=== PATIENT | female | born 1965 ===

== ENCOUNTER 2018-11-24 12:18 | Observation (INO) | payer MEDICAID, OTHER ==
[2018-11-24] MEDS ORDERED: Piperacillin/Tazobact 3.375 GM in Sodium Chloride 0.9% 100 ML IVPB STA (13:35)
[2018-11-24] MEDS ORDERED: Sodium Chloride 0.9% 1,000 ML IV ONE (13:35)
[2018-11-24] MEDS ORDERED: Tdap Vaccine 0.5 ml Vial (10-64 yrs) IM ONE ×2 (13:36→14:19)
[2018-11-24] MEDS ORDERED: Piperacillin/Tazobact 3.375 gm Inj IVPB ONE (14:18)
[2018-11-24] MEDS ORDERED: Vancomycin 1 g Inj ONE (14:18)
[2018-11-24 14:33] LABS: BASO % 0.6 % (0.0-2.0); EOS # 0.1 K/uL (0.0-0.7); EOS % 1.5 % (0.0-4.0); HEMOGLOBIN 14.6 g/dL (12.0-16.0); LYMPH # 1.2 K/uL (1.0-4.3); LYMPH % 15.7 % (20.0-40.0); MEAN CELL VOLUME 87.1 fl (81.0-99.0); MEAN CORPUSCULAR HEMOGLOBIN 29.9 pg (27.0-31.0); MEAN CORPUSCULAR HGB CONC 34.4 g/dL (33.0-37.0); MEAN PLATELET VOLUME 8.9 fl (7.2-11.7); MONO # 0.6 K/uL (0.0-0.8); MONO % 7.8 % (0.0-10.0); NEUT # 5.8 K/uL (1.8-7.0); NEUT % 74.4 % (50.0-75.0); NRBC % 0.1 % (0.0-0.0); RBC 4.87 Mil/uL (3.80-5.20); RED CELL DISTRIBUTION WIDTH 12.5 % (11.5-14.5); WHITE BLOOD COUNT 7.8 K/uL (4.8-10.8)
[2018-11-24 14:48] LABS: ALB/GLOB RATIO 1.2 (1.0-2.1); ALBUMIN 4.2 g/dL (3.5-5.0); ALT/SGPT 52 U/L (9-52); AST/SGOT 36 U/L (14-36); BLOOD UREA NITROGEN 16 mg/dl (7-17); CALCIUM 9.9 mg/dL (8.4-10.2); GFR NON-AFRICAN AMERICAN > 60
[2018-11-24] MEDS ORDERED: Insulin Regular 100 units/ml IV STA (14:53)
--- NOTE | 2018-11-24 14:54 | ED PDOC ---
HPI: Female Pain Time Seen by Provider: 11/24/18 13:07 Chief Complaint (Nursing): Abnormal Skin Integrity Chief Complaint (Provider): Abscess to left groin History Per: Patient History/Exam Limitations: no limitations Onset/Duration Of Symptoms: Days (4), Worse Since (this morning) Current Symptoms Are (Timing): Still Present Additional Complaint(s): 53 year old female presents to the ED for evaluation of an abscess on her left groin ongoing for 4 days that is worsening since this morning. Patient reports of localized pain, swelling, and tactile fever. She went to [facility] and was referred to the ED for further evaluation. Patient has a history of absces ses in the past but none this bad. Currently, patient cannot recall her last Tetanus vaccination and denies any other complaints. Otherwise, she denies chills, vomiting, diarrhea, nausea, abdominal pain, urinary symptoms, hematuria, headache, dizziness or vaginal bleeding or discharge. Her LMP was at age 48. PMD: no family provider Abnormal Vaginal Bleeding: No Last Menstral Period: age 48 Past Medical History Reviewed: Historical Data, Nursing Documentation, Vital Signs Vital Signs: Last Vital Signs Temp 98.5 F 11/24/18 13:03 Pulse 90 11/24/18 13:03 Resp 16 11/24/18 13:03 BP 136/81 11/24/18 13:03 Pulse Ox 98 11/24/18 13:03 - Medical History PMH: No Chronic Diseases - Surgical History Surgical History: No Surg Hx - Family History Family History: States: Unknown Family Hx - Social History Alcohol: None Drugs: Denies - Home Medications Home Medications: Ambulatory Orders Medication Instructions Recorded Promethazine DM [Phenergan DM 10 ml PO Q8H PRN #120 ml 10/26/16 Syrup] - Allergies Allergies/Adverse Reactions: Allergies Allergy/AdvReac Type Severity Reaction Status Date / Time No Known Allergies Allergy Verified 11/24/18 13:03 Review of Systems ROS Statement: Except As Marked, All Systems Reviewed And Found Negative Constitutional: Positive for: Fever (tactile ) Gastrointestinal: Negative for: Nausea, Vomiting, Abdominal Pain, Diarrhea Genitourinary Female: Negative for: Dysuria, Frequency, Hematuria, Vaginal Discharge, Vaginal Bleeding Musculoskeletal: Negative for: Back Pain Skin: Positive for: Other (abscess) Neurological: Negative for: Headache, Dizziness Physical Exam - Reviewed Nursing Documentation Reviewed: Yes Vital Signs Reviewed: Yes - Physical Exam Comments: GENERAL APPEARANCE: Patient is awake, alert, oriented x 3, in no acute distress. Uncomfortable appearing. SKIN: Warm, dry; (-) cyanosis. CHEST AND RESPIRATORY: (-) wheezing; (-) rales, (-) rhonchi; breath sounds e qual bilaterally. Respirations even and nonlabored. HEART AND CARDIOVASCULAR: (-) irregularity ABDOMEN AND GI: Soft, (-) tenderness. NECK: Supple, FROM ENT: Mucus membranes moist. Airway patent, (-) stridor. PELVIC: Normal external genitalia; (+) 6cm by 6cm abscess (+) induration (+)erythema (+) marked tenderness to the left groin just inferior to labia majora; (+) mild surrounding erythema (-)active drainage; (-) fluctuance. A female RN, Harleen, was tax analyst was present with me during the entire examination. EXTREMITIES: (-) deformity (-) calf tenderness - Laboratory Results Result Diagrams: 11/24/18 14:25 11/24/18 14:25 Lab Results: Total Bilirubin 0.5 mg/dl (0.2-1.3) 11/24/18 14:25 AST 36 U/L (14-36) 11/24/18 14:25 ALT 52 U/L (9-52) 11/24/18 14:25 Alkaline Phosphatase 195 U/L (38-126) H 11/24/18 14:25 Total Protein 7.6 G/DL (6.3-8.2) 11/24/18 14:25 Albumin 4.2 g/dL (3.5-5.0) 11/24/18 14:25 Globulin 3.4 gm/dL (2.2-3.9) 11/24/18 14:25 Albumin/Globulin Ratio 1.2 (1.0-2.1) 11/24/18 14:25 - ECG O2 Sat by Pulse Oximetry: 98 (RA) Pulse Ox Interpretation: Normal Medical Decision Making Medical Decision Making: Time: 1335 Impression: abscess to groin Plan: CMP CBC w/ differential Lact Acid, Plasma Tetanus 0.65ml IM NS 1000mls/hr Toradol 30mg IVP Vancomycin 1gm IV Zosyn 3.375gm IV Blood culture x2 IV insertion 1455 Labs reviewed, no leukocytosis. Hyperglycemia noted and patient denies history of DM. Insulin 10 units IV ordered in setting of new onset DM. Pelvis CT with IV contrast ordered for further evaluation of abscess. 1630 Patient resting comfortably with no additional complaints. Pending CT evaluation and repeat accucheck. Pain well controlled. [address] 1730 Repeat accucheck: [address] reviewed, radiology report follows Date of service: 11/24/2018 PROCEDURE: CT Pelvis with contrast HISTORY: groin abscess COMPARISON: None available. TECHNIQUE: Contiguous axial images of the pelvis with contrast. Coronal and sagittal reformats generated. Contrast dose: 90 cc Omnipaque 300. Radiation dose: Total exam DLP = 249.16 mGy-cm. This CT exam was performed using one or more of the following dose reduction techniques: Automated exposure control, adjustment of the mA and/or kV according to patient size, and/or use of iterative reconstruction technique. FINDINGS: BLADDER: Unremarkable. No mass. REPRODUCTIVE ORGANS: Unremarkable. VISUALIZED BOWEL: Unremarkable. PERITONEUM: Unremarkable, as visualized. No free fluid. No free air. LYMPH NODES: Unremarkable. No enlarged lymph nodes. VASCULATURE: No aortic atherosclerotic calcification or mural plaque present. BONES: No fracture or focal lesion. OTHER FINDINGS: Perineal and labial inflammatory changes extending to the medial and posterior aspect of the left thigh. No sinus or fistulous communication with the intraperitoneal structures of the pelvis. No visible uterine or urinary bladder abnormalities. IMPRESSION: Perineal/left medial thigh inflammatory changes, severe cellulitis. No drainabl e collection or sinus tract communication into the peritoneum/pelvis Case discussed with ED MD Bravo who recommends admission to med/surg obs for further IV antibiotics and glycemic control. Consult placed to hospitalist, Dr Hahn. Patient agreeable to admission. Patient reports increased pain, Tramadol 50mg PO ordered. [address] Hahn who is agreeable to admission. Arrangements made for admission. 182 Dr Hahn at bedside with family practice resident. EKG ordered. EKG: NSR @ 78 bpm (-) ST elevation, QTc 414 Scribe Attestation: Documented by Brenda Kincaid, acting as a scribe for Kaitlin Gil PA-C. Provider Scribe Attestation: All medical record entries made by the Scribe were at my direction and personally dictated by me. I have reviewed the chart and agree that the record accurately reflects my personal performance of the history, physical exam, med ical decision making, and the department course for this patient. I have also personally directed, reviewed, and agree with the discharge instructions and disposition. Disposition - Clinical Impression Clinical Impression: New onset type 2 diabetes mellitus, Hyperglycemia, Abscess of groin, Cellulitis of groin - Patient ED Disposition Is Patient to be Admitted: Yes Counseled Patient/Family Regarding: Studies Performed, Diagnosis - Disposition Disposition Time: 18:10 Condition: STABLE - Pt Status Changed To: Hospital Disposition Of: Observation (med/surg) - POA Present On Arrival: Poor Glycemic Control Results - Diagnostic Imaging Results Radiology Results Pelvis CT 11/24/18 14:53 IMPRESSION: Perineal/left medial thigh inflammatory changes, severe cellulitis. No drainable collection or sinus tract communication into the peritoneum/pelvis - Lab Results Lab Results: 11/24/18 11/24/18 11/24/18 17:31 14:50 14:25 WBC RBC Hgb Hct MCV MCH MCHC RDW Plt Count MPV Neut % (Auto) Lymph % (Auto) Real % (Auto) Eos % (Auto) Baso % (Auto) Neut # (Auto) Lymph # (Auto) Real # (Auto) Eos # (Auto) Baso # (Auto) Sodium 135 Potassium 4.2 Chloride 96 L Carbon Dioxide 28 Anion Gap 15 BUN 16 Creatinine 0.4 L Est GFR ( Amer) > 60 Est GFR (Non-Af Amer) > 60 POC Glucose (mg/dL) 223 H Random Glucose 393 H Lactic Acid 0.9 Calcium 9.9 Total Bilirubin 0.5 AST 36 ALT 52 Alkaline Phosphatase 195 H Total Protein 7.6 Albumin 4.2 Globulin 3.4 Albumin/Globulin Ratio 1.2 11/24/18 14:25 WBC 7.8 RBC 4.87 Hgb 14.6 Hct 42.4 MCV 87.1 MCH 29.9 MCHC 34.4 RDW 12.5 Plt Count 286 MPV 8.9 Neut % (Auto) 74.4 Lymph % (Auto) 15.7 L Real % (Auto) 7.8 Eos % (Auto) 1.5 Baso % (Auto) 0.6 Neut # (Auto) 5.8 Lymph # (Auto) 1.2 Real # (Auto) 0.6 Eos # (Auto) 0.1 Baso # (Auto) 0.0 Sodium Potassium Chloride Carbon Dioxide Anion Gap BUN Creatinine Est GFR ( Amer) Est GFR (Non-Af Amer) POC Glucose (mg/dL) Random Glucose Lactic Acid Calcium Total Bilirubin AST ALT Alkaline Phosphatase Total Protein Albumin Globulin Albumin/Globulin Ratio
[2018-11-24] MEDS ORDERED: Insulin Regular 100 units/ml ONE (15:36)
[2018-11-24] MEDS ORDERED: Iohexol 300 100 ML IJ ONE (17:07)
[2018-11-24] MEDS ORDERED: Sodium Chloride 0.9% 50 ML IV ONE (17:07)
--- NOTE | 2018-11-24 17:46 | CT ---
Date of service: 11/24/2018 PROCEDURE: CT Pelvis with contrast HISTORY: groin abscess COMPARISON: None available. TECHNIQUE: Contiguous axial images of the pelvis with contrast. Coronal and sagittal reformats generated. Contrast dose: 90 cc Omnipaque 300. Radiation dose: Total exam DLP = 249.16 mGy-cm. This CT exam was performed using one or more of the following dose reduction techniques: Automated exposure control, adjustment of the mA and/or kV according to patient size, and/or use of iterative reconstruction technique. FINDINGS: BLADDER: Unremarkable. No mass. REPRODUCTIVE ORGANS: Unremarkable. VISUALIZED BOWEL: Unremarkable. PERITONEUM: Unremarkable, as visualized. No free fluid. No free air. LYMPH NODES: Unremarkable. No enlarged lymph nodes. VASCULATURE: No aortic atherosclerotic calcification or mural plaque present. BONES: No fracture or focal lesion. OTHER FINDINGS: Perineal and labial inflammatory changes extending to the medial and posterior aspect of the left thigh. No sinus or fistulous communication with the intraperitoneal structures of the pelvis. No visible uterine or urinary bladder abnormalities. IMPRESSION: Perineal/left medial thigh inflammatory changes, severe cellulitis. No drainable collection or sinus tract communication into the peritoneum/pelvis
--- NOTE | 2018-11-24 18:38 | CP.PCM.HP ---
<Thuy Santamaria - Last Filed: 11/24/18 19:08> History of Present Illness - History of Present Illness History of Present Illness: This is 53 y/o F with no significant PMH admitted to [facility] for evaluation and treatment of left groin cellulitis and new onset DM-II. Patient reports 4 days hx of worsening left groin swelling, erythema and pain which started a day after shaving, reports subjective fever since last 2 days. Pain gets worse with walking, denies any discharge, trauma. + hx of abscesses in past but not this serious as per patient. Patient denies any hx of DM-II but significant elevated BS in the ER. Patient refuses physical exam by a male provider. Denies any n/v, dysuria, diarrhea/constipation, or weakness. PMH: Denies PSH: Denies ALlg: Denies Meds: None SH: Denies alcohol/smoking or drug use FH: + DM-II and breast cancers ROS: As per HPI ER COurse: VS: 98.5/90/16/136/81/spo2 98 CBC: No wbcs, wnl CMP: : WNL, BS: 393 S/p insulin 10 U, Toradol x 2 , 1L IVF, Vanco and Zosyn CT pelvis: + Severe cellulitis, No Drainable collection Present on Admission - Present on Admission Any Indicators Present on Admission: No Review of Systems - Constitutional Constitutional: absent: Excessive Sweating - EENT Eyes: absent: Blurred Vision Ears: absent: Ear Discharge, Dizziness Nose/Mouth/Throat: absent: Nasal Congestion, Nose Pain - Breasts Breasts: absent: Skin Changes - Cardiovascular Cardiovascular: absent: Chest Pain - Respiratory Respiratory: absent: Cough, Dyspnea, Hemoptysis - Gastrointestinal Gastrointestinal: absent: Abdominal Pain, Heartburn, Nausea, Vomiting - Genitourinary Genitourinary: absent: Change in Urinary Stream - Musculoskeletal Musculoskeletal: absent: Back Pain, Muscle Weakness - Integumentary Additional comments: Cellulitis of left groin - Neurological Neurological: absent: Behavioral Changes, Dizziness - Psychiatric Psychiatric: absent: Anxiety - Endocrine Endocrine: absent: Fatigue, Palpitations - Hematologic/Lymphatic Hematologic: absent: Easy Bleeding Past Patient History - Past Social History Alcohol: None Drugs: Denies - PSYCHIATRIC Hx Substance Use: No Meds Allergies/Adverse Reactions: Allergies Allergy/AdvReac Type Severity Reaction Status Date / Time No Known Allergies Allergy Verified 11/24/18 13:03 Physical Exam - Constitutional Appears: No Acute Distress - Head Exam Head Exam: ATRAUMATIC, NORMAL INSPECTION, NORMOCEPHALIC - Eye Exam Eye Exam: EOMI, Normal appearance, PERRL Pupil Exam: NORMAL ACCOMODATION - ENT Exam ENT Exam: Mucous Membranes Moist - Neck Exam Neck exam: Positive for: Normal Inspection - Respiratory Exam Respiratory Exam: Clear to Auscultation Bilateral, NORMAL BREATHING PATTERN. absent: Accessory Muscle Use - Cardiovascular Exam Cardiovascular Exam: REGULAR RHYTHM, +S1, +S2 - GI/Abdominal Exam GI & Abdominal Exam: Normal Bowel Sounds, Soft. absent: Tenderness - Exam Additional comments: Patient refused/declined physical exam/groin abscess by male physicians (Patient will be reexamied in morning by female physician), Physical exam information discussed with female ER physician. - Extremities Exam Extremities exam: Positive for: normal inspection, pedal pulses present. Negative for: tenderness - Back Exam Back exam: NORMAL INSPECTION. absent: CVA tenderness (L), CVA tenderness (R) - Neurological Exam Neurological exam: Alert, CN II-XII Intact, Oriented x3 - Psychiatric Exam Psychiatric exam: Normal Affect - Skin Additional comments: Groin cellulitis not examined Results - Vital Signs Recent Vital Signs: Last Vital Signs Temp 98.5 F 11/24/18 13:03 Pulse 90 11/24/18 13:03 Resp 16 11/24/18 13:03 BP 136/81 11/24/18 13:03 Pulse Ox 98 11/24/18 18:13 - Labs Result Diagrams: 11/24/18 14:25 11/24/18 14:25 Labs: Laboratory Results - last 24 hr 11/24/18 11/24/18 11/24/18 14:25 14:25 14:50 WBC 7.8 RBC 4.87 Hgb 14.6 Hct 42.4 MCV 87.1 MCH 29.9 MCHC 34.4 RDW 12.5 Plt Count 286 MPV 8.9 Neut % (Auto) 74.4 Lymph % (Auto) 15.7 L [place] % (Auto) 7.8 Eos % (Auto) 1.5 Baso % (Auto) 0.6 Neut # (Auto) 5.8 Lymph # (Auto) 1.2 [place] # (Auto) 0.6 Eos # (Auto) 0.1 Baso # (Auto) 0.0 Sodium 135 Potassium 4.2 Chloride 96 L Carbon Dioxide 28 Anion Gap 15 BUN 16 Creatinine 0.4 L Est GFR ( Amer) > 60 Est GFR (Non-Af Amer) > 60 POC Glucose (mg/dL) Random Glucose 393 H Lactic Acid 0.9 Calcium 9.9 Total Bilirubin 0.5 AST 36 ALT 52 Alkaline Phosphatase 195 H Total Protein 7.6 Albumin 4.2 Globulin 3.4 Albumin/Globulin Ratio 1.2 11/24/18 17:31 WBC RBC Hgb Hct MCV MCH MCHC RDW Plt Count MPV Neut % (Auto) Lymph % (Auto) [place] % (Auto) Eos % (Auto) Baso % (Auto) Neut # (Auto) Lymph # (Auto) [place] # (Auto) Eos # (Auto) Baso # (Auto) Sodium Potassium Chloride Carbon Dioxide Anion Gap BUN Creatinine Est GFR ( Amer) Est GFR (Non-Af Amer) POC Glucose (mg/dL) 223 H Random Glucose Lactic Acid Calcium Total Bilirubin AST ALT Alkaline Phosphatase Total Protein Albumin Globulin Albumin/Globulin Ratio Assessment & Plan - Assessment and Plan (Free Text) Assessment: A/P: 53 y/o F with no significant PMH admitted to [facility] for evaluation and treatment of left groin cellulitis and new onset DM-II. Left Groin Cellulitis/Abscess - CT pelvis: + Severe cellulitis, No Drainable collection - C/w warm compressions - START Vanco and Zosyn day#0 - Re-examination by female physician in morning - Consider surgery - Pain management - F/u Bcx and morning labs Elevated Blood Glucose, likely new onset of DM-II - F/u morning HBA1C - Sliding scale/Hypoglycemic protocol - AccuChecks ACHS DVT PPX - Lovenox 40mg SC dily Case discussed and patient seen with Dr. Hahn <Mikael Hahn D - Last Filed: 11/25/18 11:13> Results - Vital Signs Recent Vital Signs: Last Vital Signs Temp 97.6 F 11/25/18 07:39 Pulse 75 11/25/18 07:39 Resp 19 11/25/18 07:39 BP 108/65 11/25/18 07:39 Pulse Ox 97 11/25/18 07:39 - Labs Result Diagrams: 11/25/18 05:37 11/25/18 05:37 Labs: Laboratory Results - last 24 hr 11/24/18 11/24/18 11/24/18 14:25 14:25 14:50 WBC 7.8 RBC 4.87 Hgb 14.6 Hct 42.4 MCV 87.1 MCH 29.9 MCHC 34.4 RDW 12.5 Plt Count 286 MPV 8.9 Neut % (Auto) 74.4 Lymph % (Auto) 15.7 L [place] % (Auto) 7.8 Eos % (Auto) 1.5 Baso % (Auto) 0.6 Neut # (Auto) 5.8 Lymph # (Auto) 1.2 [place] # (Auto) 0.6 Eos # (Auto) 0.1 Baso # (Auto) 0.0 Sodium 135 Potassium 4.2 Chloride 96 L Carbon Dioxide 28 Anion Gap 15 BUN 16 Creatinine 0.4 L Est GFR ( Amer) > 60 Est GFR (Non-Af Amer) > 60 POC Glucose (mg/dL) Random Glucose 393 H Lactic Acid 0.9 Calcium 9.9 Total Bilirubin 0.5 AST 36 ALT 52 Alkaline Phosphatase 195 H Total Protein 7.6 Albumin 4.2 Globulin 3.4 Albumin/Globulin Ratio 1.2 11/24/18 11/24/18 11/25/18 17:31 21:36 05:10 WBC RBC Hgb Hct MCV MCH MCHC RDW Plt Count MPV Neut % (Auto) Lymph % (Auto) [place] % (Auto) Eos % (Auto) Baso % (Auto) Neut # (Auto) Lymph # (Auto) [place] # (Auto) Eos # (Auto) Baso # (Auto) Sodium Potassium Chloride Carbon Dioxide Anion Gap BUN Creatinine Est GFR ( Amer) Est GFR (Non-Af Amer) POC Glucose (mg/dL) 223 H 200 H 355 H Random Glucose Lactic Acid Calcium Total Bilirubin AST ALT Alkaline Phosphatase Total Protein Albumin Globulin Albumin/Globulin Ratio 11/25/18 11/25/18 05:37 05:37 WBC 7.6 RBC 4.64 Hgb 13.9 Hct 40.5 MCV 87.3 MCH 29.9 MCHC 34.2 RDW 12.7 Plt Count 291 MPV 8.8 Neut % (Auto) 69.3 Lymph % (Auto) 19.1 L [place] % (Auto) 9.3 Eos % (Auto) 1.7 Baso % (Auto) 0.6 Neut # (Auto) 5.2 Lymph # (Auto) 1.4 [place] # (Auto) 0.7 Eos # (Auto) 0.1 Baso # (Auto) 0.0 Sodium 138 Potassium 4.2 Chloride 104 Carbon Dioxide 24 Anion Gap 14 BUN 13 Creatinine 0.4 L Est GFR ( Amer) > 60 Est GFR (Non-Af Amer) > 60 POC Glucose (mg/dL) Random Glucose 355 H Lactic Acid Calcium 9.2 Total Bilirubin AST ALT Alkaline Phosphatase Total Protein Albumin Globulin Albumin/Globulin Ratio Attending/Attestation - Attestation I have personally seen and examined this patient.: Yes I have fully participated in the care of the patient.: Yes I have reviewed all pertinent clinical information: Yes Notes (Text): 11/25/18 11:12 Patient seen and examined with resident. Case discussed and agreed with assessment and plan of management
[2018-11-24] MEDS ORDERED: Dextrose 50% SYRINGE Inj (50 ml) IV PRN (19:03)
[2018-11-24] MEDS ORDERED: Glucagon Recombinant 1 mg Inj IM PRN (19:03)
[2018-11-24] MEDS: Insulin Lispro (humaLOG) 100 Units/ml Inj SC SCH (23:00)
[2018-11-24] MEDS: Piperacillin/Tazobact 3.375 GM in Sodium Chloride 0.9% 100 ML IVPB SCH (23:43)
[2018-11-25] MEDS: Piperacillin/Tazobact 3.375 GM in Sodium Chloride 0.9% 100 ML IVPB SCH ×2 (05:00→09:45)
[2018-11-25 05:45] LABS: BASO % 0.6 % (0.0-2.0); EOS # 0.1 K/uL (0.0-0.7); EOS % 1.7 % (0.0-4.0); HEMOGLOBIN 13.9 g/dL (12.0-16.0); LYMPH # 1.4 K/uL (1.0-4.3); LYMPH % 19.1 % (20.0-40.0); MEAN CELL VOLUME 87.3 fl (81.0-99.0); MEAN CORPUSCULAR HEMOGLOBIN 29.9 pg (27.0-31.0); MEAN CORPUSCULAR HGB CONC 34.2 g/dL (33.0-37.0); MEAN PLATELET VOLUME 8.8 fl (7.2-11.7); MONO # 0.7 K/uL (0.0-0.8); MONO % 9.3 % (0.0-10.0); NEUT # 5.2 K/uL (1.8-7.0); NEUT % 69.3 % (50.0-75.0); RBC 4.64 Mil/uL (3.80-5.20); RED CELL DISTRIBUTION WIDTH 12.7 % (11.5-14.5); WHITE BLOOD COUNT 7.6 K/uL (4.8-10.8)
[2018-11-25 05:51] LABS: BLOOD UREA NITROGEN 13 mg/dl (7-17); CALCIUM 9.2 mg/dL (8.4-10.2); GFR NON-AFRICAN AMERICAN > 60
[2018-11-25 07:40] VITALS: BP 108/65; PULSE 75; RESP 19; TEMP 97.6; O2SAT 97
--- NOTE | 2018-11-25 08:42 | CARD ---
APPROVED REPORT Date of service: 11/24/2018 EKG Measurement Heart [id number] <Conclusion> Normal sinus rhythm Moderate voltage criteria for LVH, may be normal variant Borderline ECG
[2018-11-25] MEDS ORDERED: Pantoprazole 40 mg EC Tab PO SCH (09:00)
[2018-11-25] MEDS: Enoxaparin 40 mg Syringe SC SCH ×2 (09:45→09:52)
[2018-11-25] MEDS: Insulin Lispro (humaLOG) 100 Units/ml Inj SC SCH ×2 (09:46→12:12)
--- NOTE | 2018-11-25 14:18 | CP.PCM.DIS ---
<Mackenzie Andres - Last Filed: 11/25/18 15:02> Provider - Provider Date of Admission: 11/24/18 18:11 Attending physician: Mikael Hahn MD Consults: 11/25/18 00:26 Case Management Referral Routine Comment: Physician Instructions: Reason For Exam: new onset DM Reason for Referral: Discharge Planning Social Work Referral Routine Comment: protocol Physician Instructions: Reason For Exam: new onset DM Time Spent in preparation of Discharge (in minutes): 30 Hospital Course - Lab Results Lab Results: Most Recent Lab Values WBC 7.6 K/uL (4.8-10.8) 11/25/18 05:37 RBC 4.64 Mil/uL (3.80-5.20) 11/25/18 05:37 Hgb 13.9 g/dL (12.0-16.0) 11/25/18 05:37 Hct 40.5 % (34.0-47.0) 11/25/18 05:37 MCV 87.3 fl (81.0-99.0) 11/25/18 05:37 MCH 29.9 pg (27.0-31.0) 11/25/18 05:37 MCHC 34.2 g/dL (33.0-37.0) 11/25/18 05:37 RDW 12.7 % (11.5-14.5) 11/25/18 05:37 Plt Count 291 K/uL (130-400) 11/25/18 05:37 MPV 8.8 fl (7.2-11.7) 11/25/18 05:37 Neut % (Auto) 69.3 % (50.0-75.0) 11/25/18 05:37 Lymph % (Auto) 19.1 % (20.0-40.0) L 11/25/18 05:37 [place] % (Auto) 9.3 % (0.0-10.0) 11/25/18 05:37 Eos % (Auto) 1.7 % (0.0-4.0) 11/25/18 05:37 Baso % (Auto) 0.6 % (0.0-2.0) 11/25/18 05:37 Neut # (Auto) 5.2 K/uL (1.8-7.0) 11/25/18 05:37 Lymph # (Auto) 1.4 K/uL (1.0-4.3) 11/25/18 05:37 [place] # (Auto) 0.7 K/uL (0.0-0.8) 11/25/18 05:37 Eos # (Auto) 0.1 K/uL (0.0-0.7) 11/25/18 05:37 Baso # (Auto) 0.0 K/uL (0.0-0.2) 11/25/18 05:37 Sodium 138 mmol/l (132-148) 11/25/18 05:37 Potassium 4.2 MMOL/L (3.6-5.0) 11/25/18 05:37 Chloride 104 mmol/L (98-107) 11/25/18 05:37 Carbon Dioxide 24 mmol/L (22-30) 11/25/18 05:37 Anion Gap 14 (10-20) 11/25/18 05:37 BUN 13 mg/dl (7-17) 11/25/18 05:37 Creatinine 0.4 mg/dl (0.7-1.2) L 11/25/18 05:37 Est GFR ( Amer) > 60 11/25/18 05:37 Est GFR (Non-Af Amer) > 60 11/25/18 05:37 POC Glucose (mg/dL) 355 mg/dL (65-110) H 11/25/18 05:10 Random Glucose 355 mg/dL (65-105) H 11/25/18 05:37 Hemoglobin A1c 13.7 % (4.2-6.5) H 11/25/18 05:37 Lactic Acid 0.9 mmol/L (0.7-2.1) 11/24/18 14:50 Calcium 9.2 mg/dL (8.4-10.2) 11/25/18 05:37 Total Bilirubin 0.5 mg/dl (0.2-1.3) 11/24/18 14:25 AST 36 U/L (14-36) 11/24/18 14:25 ALT 52 U/L (9-52) 11/24/18 14:25 Alkaline Phosphatase 195 U/L (38-126) H 11/24/18 14:25 Total Protein 7.6 G/DL (6.3-8.2) 11/24/18 14:25 Albumin 4.2 g/dL (3.5-5.0) 11/24/18 14:25 Globulin 3.4 gm/dL (2.2-3.9) 11/24/18 14:25 Albumin/Globulin Ratio 1.2 (1.0-2.1) 11/24/18 14:25 - Hospital Course Hospital Course: 53 y/o F with no significant PMH admitted to [facility] for evaluation and treatment of left groin abscess with cellulitis. Patient received IV antibiotics. Abdominal Ct showed perineal and labial inflammatory changes extending to the medial and posterior aspect of left thigh. Patient was seen and examined this morning with Nurse Molina. Abscess w/o fluctuation therefore no need for drainage. Will discharge home with PO antibiotics as well as metformin for newly dx DMII & FU with PMD. 1. Left groin abscess with cellulitis (just below left labia majora) 2. Newly dx DM II (uncontrolled) Discharge Exam - Head Exam Head Exam: ATRAUMATIC, NORMAL INSPECTION, NORMOCEPHALIC - Eye Exam Eye Exam: EOMI - ENT Exam ENT Exam: Mucous Membranes Moist - Respiratory Exam Respiratory Exam: NORMAL BREATHING PATTERN - Cardiovascular Exam Cardiovascular Exam: REGULAR RHYTHM, +S1, +S2 - GI/Abdominal Exam GI & Abdominal Exam: Normal Bowel Sounds, Soft. 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- 6 x 7cm area of erythema, induration w/o fluctuance minimally tender (pt just recently received pain medication) just below the left labia majora Discharge Plan - Discharge Medications Prescriptions: Amoxicillin/Clavulanate [Augmentin 875 MG-125 MG] 1 tab PO BID #20 tab metFORMIN [glucOPHAGE] 500 mg PO BID #60 tab - Follow Up Plan Condition: STABLE Disposition: HOME/ ROUTINE Instructions: Boil (DC), Diabetes Diet , Diabetes Type 2 (DC), Cellulitis (Skin Infection), Adult (DC), Diabetic Meal Planning , Cellulitis (DC), Abscess (GEN) <Mikael Hahn - Last Filed: 11/25/18 15:39> Provider - Provider Date of Admission: 11/24/18 18:11 Attending physician: Mikael Hahn MD Consults: 11/25/18 00:26 Case Management Referral Routine Comment: Physician Instructions: Reason For Exam: new onset DM Reason for Referral: Discharge Planning Social Work Referral Routine Comment: protocol Physician Instructions: Reason For Exam: new onset DM Hospital Course - Lab Results Lab Results: Micro Results 11/24/18 14:50 Blood-Venous Blood Culture - Preliminary NO GROWTH AFTER 24 HOURS 11/24/18 14:25 Blood-Venous Blood Culture - Preliminary NO GROWTH AFTER 24 HOURS Most Recent Lab Values WBC 7.6 K/uL (4.8-10.8) 11/25/18 05:37 RBC 4.64 Mil/uL (3.80-5.20) 11/25/18 05:37 Hgb 13.9 g/dL (12.0-16.0) 11/25/18 05:37 Hct 40.5 % (34.0-47.0) 11/25/18 05:37 MCV 87.3 fl (81.0-99.0) 11/25/18 05:37 MCH 29.9 pg (27.0-31.0) 11/25/18 05:37 MCHC 34.2 g/dL (33.0-37.0) 11/25/18 05:37 RDW 12.7 % (11.5-14.5) 11/25/18 05:37 Plt Count 291 K/uL (130-400) 11/25/18 05:37 MPV 8.8 fl (7.2-11.7) 11/25/18 05:37 Neut % (Auto) 69.3 % (50.0-75.0) 11/25/18 05:37 Lymph % (Auto) 19.1 % (20.0-40.0) L 11/25/18 05:37 [place] % (Auto) 9.3 % (0.0-10.0) 11/25/18 05:37 Eos % (Auto) 1.7 % (0.0-4.0) 11/25/18 05:37 Baso % (Auto) 0.6 % (0.0-2.0) 11/25/18 05:37 Neut # (Auto) 5.2 K/uL (1.8-7.0) 11/25/18 05:37 Lymph # (Auto) 1.4 K/uL (1.0-4.3) 11/25/18 05:37 [place] # (Auto) 0.7 K/uL (0.0-0.8) 11/25/18 05:37 Eos # (Auto) 0.1 K/uL (0.0-0.7) 11/25/18 05:37 Baso # (Auto) 0.0 K/uL (0.0-0.2) 11/25/18 05:37 Sodium 138 mmol/l (132-148) 11/25/18 05:37 Potassium 4.2 MMOL/L (3.6-5.0) 11/25/18 05:37 Chloride 104 mmol/L (98-107) 11/25/18 05:37 Carbon Dioxide 24 mmol/L (22-30) 11/25/18 05:37 Anion Gap 14 (10-20) 11/25/18 05:37 BUN 13 mg/dl (7-17) 11/25/18 05:37 Creatinine 0.4 mg/dl (0.7-1.2) L 11/25/18 05:37 Est GFR ( Amer) > 60 11/25/18 05:37 Est GFR (Non-Af Amer) > 60 11/25/18 05:37 POC Glucose (mg/dL) 355 mg/dL (65-110) H 11/25/18 05:10 Random Glucose 355 mg/dL (65-105) H 11/25/18 05:37 Hemoglobin A1c 13.7 % (4.2-6.5) H 11/25/18 05:37 Lactic Acid 0.9 mmol/L (0.7-2.1) 11/24/18 14:50 Calcium 9.2 mg/dL (8.4-10.2) 11/25/18 05:37 Total Bilirubin 0.5 mg/dl (0.2-1.3) 11/24/18 14:25 AST 36 U/L (14-36) 11/24/18 14:25 ALT 52 U/L (9-52) 11/24/18 14:25 Alkaline Phosphatase 195 U/L (38-126) H 11/24/18 14:25 Total Protein 7.6 G/DL (6.3-8.2) 11/24/18 14:25 Albumin 4.2 g/dL (3.5-5.0) 11/24/18 14:25 Globulin 3.4 gm/dL (2.2-3.9) 11/24/18 14:25 Albumin/Globulin Ratio 1.2 (1.0-2.1) 11/24/18 14:25 Attending/Attestation - Attestation I have personally seen and examined this patient.: Yes I have fully participated in the care of the patient.: Yes I have reviewed all pertinent clinical information, including history, physical exam and plan: Yes Notes (Text): 11/25/18 15:38 Patient seen and examined with resident. Case discussed and agreed with assessment. Patient discharged in stable condition.
== END 2018-11-25 15:35 | disposition home or self-care (01) ==
LOC: H.ER 12:18 → H.ERHOLD 18:11 → H.MEDSURG1 22:20
DX: L02.214 Cutaneous abscess of groin (principal); L03.314 Cellulitis of groin; E11.65 Type 2 diabetes mellitus with hyperglycemia; Z23 Encounter for immunization
CPT/HCPCS: 36415; 72193; 80048; 80053; 81025; 82948; 83036; 83605; 85025; 87040; 90471; 90715; 93005; 96365; 96366; 96367; 96372; 96375; 96376; 99283; G0378; J1885; J2543; J7040; Q9967